=== PATIENT | male | born 1980 | race Hispanic/Latino ===

== ENCOUNTER 2018-04-21 13:21 | Emergency (ER) | payer OTHER ==
[2018-04-21] MEDS ORDERED: SODIUM CHLORIDE 0.9% 1000ML 1,000 ML IV ONE (14:38)
[2018-04-21] MEDS ORDERED: ONDANSETRON HCL 4 MG/2 ML VIAL ONE (14:38)
[2018-04-21] MEDS ORDERED: ACETAMINOPHEN EXTRA STRENGTH 500 MG TABLET ONE (14:38)
[2018-04-21 14:40] LABS: BASOPHILS % (AUTO) 0.6 % (0.0-5.0); HEMATOCRIT 44.2 % (42-54); LYMPHOCYTES % (AUTO) 6.3 % (21.0-51.0); MEAN CORPUSCULAR HEMOGLOBIN 28.2 pg (27.0-33.0); MEAN CORPUSCULAR HGB CONC 33.7 g/dL (32.0-36.0); MEAN CORPUSCULAR VOLUME 83.7 fL (79-99); MONOCYTES % (AUTO) 4.8 % (3.0-13.0); NEUTROPHILS % (AUTO) 88.3 % (40.0-77.0); PLATELET COUNT (AUTO) 206 K/uL (130-400); RED BLOOD CELL COUNT(AUTO) 5.29 MIL/uL (4.50-6.20); RED CELL DISTRIBUTION WIDTH 12.9 % (11.0-15.5); WHITE BLOOD COUNT (AUTO) 13.1 K/uL (4.8-10.8)
[2018-04-21 14:57] LABS: RAPID GROUP A STREP POSITIVE (NEGATIVE)
[2018-04-21 15:01] LABS: CREATININE 1.1 mg/dL (0.5-1.5); POTASSIUM 3.5 mmol/L (3.5-5.1)
[2018-04-21] MEDS ORDERED: CEFTRIAXONE SODIUM 1 GM ONE (15:04)
[2018-04-21] MEDS ORDERED: SODIUM CHLORIDE 0.9% 100 ML IV ONE (15:04)
[2018-04-21 15:06] LABS: BILIRUBIN,TOTAL 1.9 mg/dL (0.2-1.0)
== END 2018-04-21 16:15 | disposition home or self-care (01) ==
LOC: EDH 13:21
DX: J02.0 Streptococcal pharyngitis (principal); Z88.0 Allergy status to penicillin
CPT/HCPCS: 36415; 80053; 85025; 87804 ×2; 87880; 96374; 96375; 99284; J0696; J2405; J7030